=== PATIENT | female | born 1940 | race American Indian/Alaskan Native ===

== ENCOUNTER 2016-10-14 20:40 | Emergency (ER) | payer OTHER ==
[2016-10-14] MEDS ORDERED: ONDANSETRON 4 MG/2 ML VIAL IVP ONE (21:06)
[2016-10-14] MEDS ORDERED: NS 1,000 ML IV ONE (21:06)
[2016-10-14 21:30] VITALS: BP 145/91; PULSE 76; RESP 16; TEMP 98.2; O2SAT 94
[2016-10-14 21:47] LABS: % IMMATURE GRANULYOCYTES 0.3 % (0.0-1.1); ABSOLUTE IMMATURE GRANULOCYTES 0.02 10^3/uL (0.00-0.10); ADD DIFF? NO; ADD MORPH? NO; ADD SCAN? NO; ATYPICAL LYMPHOCYTE FLAG 10 (0-99); FRAGMENT RBC FLAG 0 (0-99); HEMATOCRIT 40.8 % (38.0-47.0); HEMOGLOBIN 13.8 g/dL (12.6-16.3); LEFT SHIFT FLG 0 (0-99); LIPEMIA HEMOLYSIS FLAG 90 (0-99); MEAN CELL HEMOGLOBIN 30.9 pg (27.9-34.1); MEAN CELL HEMOGLOBIN CONCENTR. 33.8 g/dL (32.4-36.7); MEAN CELL VOLUME 91.5 fL (81.5-99.8); MEAN PLATELET VOLUME 9.5 fL (8.7-11.7); PLATELET CLUMPS FLAG 0 (0-99); PLATELET COUNT 173 10^3/uL (150-400); RED BLOOD CELL COUNT 4.46 10^6/uL (4.18-5.33); RED CELL DISTRIBUTION WIDTH 12.9 % (11.5-15.2)
[2016-10-14 22:01] LABS: ALANINE AMINOTRANSFERASE 26 IU/L (9-52); ALBUMIN 3.8 g/dL (3.5-5.0); ALKALINE PHOSPHATASE 93 IU/L (38-126); ANION GAP 10 mEq/L (8-16); ASPARTATE AMINOTRANSFERASE 26 IU/L (14-46); BILIRUBIN,TOTAL 1.4 mg/dL (0.1-1.4); CALCIUM 9.2 mg/dL (8.5-10.4); CARBON DIOXIDE 23 mEq/l (22-31); CHLORIDE 103 mEq/L (97-110); CREATININE 0.7 mg/dL (0.6-1.0); GLOMERULAR FILTRATION RATE > 60; GLUCOSE 93 mg/dL (70-100); POTASSIUM 3.6 mEq/L (3.5-5.2); SODIUM 136 mEq/L (134-144); TOTAL PROTEIN 6.9 g/dL (6.3-8.2)
[2016-10-14] MEDS ORDERED: MAALOX/HYOSC GI COCKTAIL 45 ML BOTTLE PO ONE (22:15)
[2016-10-14] MEDS ORDERED: ONDANSETRON 4MG PREPACK#2 BTL TAKEHOME ONE (22:30)
--- NOTE | 2016-10-14 22:35 | UCPHY ---
H & P Patient Type: Established Chief Complaint Nursing Narrative: abdominal pain and vomiting for 1 day Time Seen by Provider: 10/14/16 21:14 HPI/ROS: This patient has epigastric discomfort and vomiting. She reports that she had simultaneous onset of epigastric burning pain similar to previous episodes associated with vomiting and had 4 episodes of vomiting today. She has ongoing nausea currently. She reports the discomfort is moderate in intensity and radiates slightly to her back. She reports that typically once or twice a year she has episodes like this for quite some time and usually improves after IV fluids and hydration. She has had workup with Gastroenterology was unrevealing and takes Prevacid and reports compliance with her Prevacid. ROS: No fevers or chills. She reports no other constitutional complaints. She has no HEENT complaints. Pulmonary: No cough or shortness of breath cardiovascular: No lightheadedness or heart palpitations. No chest pain. GI.: She reports no hematemesis or coffee-ground emesis. She had 2 loose stools today. Integumentary: No skin rash. 10 point ROS is otherwise negative. Source: Patient Exam Limitations: No limitations - Personal History Current Tetanus Diphtheria and Acellular Pertussis (TDAP): Yes Tetanus Vaccine Date: < 10 years - Medical/Surgical History Hx Asthma: No Hx Chronic Respiratory Disease: No Hx Diabetes: No Hx Cardiac Disease: No Hx Renal Disease: No Hx Cirrhosis: No Hx Alcoholism: No Hx HIV/AIDS: No Hx Splenectomy or Spleen Trauma: No Other PMH: hypothyroid, tubes tied, thyroid tumor, GERD - Family History Significant Family History: No pertinent family hx - Social History Smoking Status: Never smoked Alcohol Use: None Drug Use: None - Physical Exam Exam: General Appearance: Pleasant female Alert, no distress. Eyes: Pupils equal and round no pallor or injection. ENT, Mouth: Mucous membranes moist. Respiratory: There are no retractions, lungs are clear to auscultation. Cardiovascular: Regular rate and rhythm. No murmur gallop or rub Gastrointestinal: Mildly hyperactive bowel sounds. Soft, minimal epigastric tenderness that reproduces her symptoms with no guarding or rebound. No hepatomegaly. No splenomegaly. Back: No CVA tenderness Neurological: Alert with no focal deficits Skin: Warm and dry, no rashes. Extremities are symmetrical, full range of motion. Psychiatric: Mood and affect are normal DIFFERENTIAL DIAGNOSIS: After history and physical exam differential diagnosis was considered for gastritis, pancreatitis, hepatitis, viral illness, dehydration Constitutional: Initial Vital Signs Temperature (C) 36.8 C 10/14/16 21:27 Heart Rate 76 10/14/16 21: Respiratory Rate 16 10/14/16 21:27 Blood Pressure 145/91 H 10/14/16 21:27 O2 Sat (%) 94 10/14/16 21:27 O2 Delivery Mode Room Air Allergies/Adverse Reactions: No Known Allergies Allergy (Verified 10/14/16 21:21) Home Medications: Medication Instructions Recorded Calcium Carb W/Vit D [Calcium Carb 1,000 mg PO BIDMEAL 07/23/15 W/Vit D 500/200 (OTC)] Lansoprazole [Prevacid] 15 mg PO DAILY 07/23/15 Cyanocobalamin [Vitamin B12 1,000 mcg IM SU19 #4 vial 07/24/15 1000MCG/ML (*)] Levothyroxine [Synthroid 50 mcg 25 mcg PO DAILY06 #0 tab 07/24/15 (*)] Ondansetron Odt [Zofran Odt] 4 - 8 mg PO Q4PRN PRN #4 tab 10/14/16 Medical Decision Making ED Course/Re-evaluation: IV normal saline bolus x1 L Zofran IV Patient's nausea resolved. She is given a GI cocktail with resolution of her epigastric discomfort. Review of her labs reveals normal electrolytes, LFTs and lipase. CBC is also normal. I counseled regarding this. I suspect this patient has a flare of gastritis contributing to her symptoms or viral illness. She does not have a surgical abdomen and does not have any concerning findings on workup. - Data Points Laboratory Results: Laboratory Results 10/14/16 21:40 10/14/16 21:40 10/14/16 21:40 WBC 6.39 10^3/uL (3.80-9.50) RBC 4.46 10^6/uL (4.18-5.33) Hgb 13.8 g/dL (12.6-16.3) Hct 40.8 % (38.0-47.0) MCV 91.5 fL (81.5-99.8) MCH 30.9 pg (27.9-34.1) MCHC 33.8 g/dL (32.4-36.7) RDW 12.9 % (11.5-15.2) Plt Count 173 10^3/uL (150-400) MPV 9.5 fL (8.7-11.7) Neut % (Auto) 84.9 H % (39.3-74.2) Lymph % (Auto) 10.3 L % (15.0-45.0) [place] % (Auto) 3.8 L % (4.5-13.0) Eos % (Auto) 0.5 L % (0.6-7.6) Baso % (Auto) 0.2 L % (0.3-1.7) Nucleat RBC Rel Count 0.0 % (0.0-0.2) Absolute Neuts (auto) 5.43 10^3/uL (1.70-6.50) Absolute Lymphs (auto) 0.66 L 10^3/uL (1.00-3.00) Absolute Monos (auto) 0.24 L 10^3/uL (0.30-0.80) Absolute Eos (auto) 0.03 10^3/uL (0.03-0.40) Absolute Basos (auto) 0.01 L 10^3/uL (0.02-0.10) Absolute Nucleated RBC 0.00 10^3/uL (0-0.01) Immature Gran % 0.3 % (0.0-1.1) Immature Gran # 0.02 10^3/uL (0.00-0.10) Sodium 136 mEq/L (134-144) Potassium 3.6 mEq/L (3.5-5.2) Chloride 103 mEq/L (97-110) Carbon Dioxide 23 mEq/l (22-31) Anion Gap 10 mEq/L (8-16) BUN 12 mg/dL (7-23) Creatinine 0.7 mg/dL (0.6-1.0) Estimated GFR > 60 Glucose 93 mg/dL (70-100) Calcium 9.2 mg/dL (8.5-10.4) Total Bilirubin 1.4 mg/dL (0.1-1.4) AST 26 IU/L (14-46) ALT 26 IU/L (9-52) Alkaline Phosphatase 93 IU/L (38-126) Total Protein 6.9 g/dL (6.3-8.2) Albumin 3.8 g/dL (3.5-5.0) Lipase 53.0 IU/L (23-300) Medications Given: Discontinued Medications Sodium Chloride (Ns) 1,000 mls @ 0 mls/hr IV ONCE ONE PRN Reason: Wide Open Stop: 10/14/16 21:07 Last Admin: 10/14/16 21:30 Dose: 1,000 mls Miscellaneous Medication (Gi Cocktail(No Lido)) 45 ml PO EDNOW ONE Stop: 10/14/16 22:16 Last Admin: 10/14/16 22:23 Dose: 45 ml Ondansetron HCl (Zofran) 4 mg IVP EDNOW ONE Stop: 10/14/16 21:07 Last Admin: 10/14/16 21:45 Dose: 4 mg Departure - Departure Disposition: Home, Routine, Self-Care Clinical Impression: Gastritis Qualifiers: Gastritis type: unspecified gastritis Chronicity: acute Gastritis bleeding: without bleeding Qualifier Code: (K29.00) Acute gastritis without bleeding Vomiting Qualifiers: Vomiting type: unspecified Vomiting Intractability: non-intractable Nausea presence: with nausea Qualifier Code: (R11.2) Nausea with vomiting, unspecified Condition: Good Instructions: Gastritis (ED), Acute Nausea and Vomiting (ED) Additional Instructions: Diagnosis: 1. Vomiting 2. Gastritis Plan: Light diet until he feel improved Zofran if needed for nausea or vomiting Continue Prevacid Add Maalox as needed for discomfort Return for any significant worsening despite treatment plan - PQRS PQRS Measurement: 134: Depression screening and followup, PRIME MD-PHQ2 (12 years and older) Over the last 2 weeks, how often have you been bothered by any of the following problems? 1. Feeling down, depressed, or hopeless? 2. Little interest or pleasure in doing things? Patient answered no to both 1 and 2 130: Documentation of medications. Reviewed all patient medications, doses, route and frequency. 226: Do you smoke? [No.] 47: 65 and older: Advanced care planning. Patient designates surrogate decision maker as spouse. 51: 18 years old and older with diagnosis of COPD, spirometry performance. NA 52: 18 years old and older with COPD and symptoms of COPD or FEV1<60% predicted prescribed a B Agonist. NA
== END 2016-10-14 22:55 | disposition home or self-care (01) ==
LOC: CED 20:40
DX: K29.00 Acute gastritis without bleeding (principal); R11.2 Nausea with vomiting, unspecified; E03.9 Hypothyroidism, unspecified; K21.9 Gastro-esophageal reflux disease without esophagitis
CPT/HCPCS: 96361; 96374; G0463; J2405; 80053-PO; 83690-PO; 85025-PO; 99205-PO

== ENCOUNTER 2016-10-17 16:36 | Emergency (ER) | payer OTHER ==
[2016-10-17] MEDS ORDERED: ONDANSETRON 4 MG/2 ML VIAL IVP ONE (17:29)
[2016-10-17] MEDS ORDERED: NS 1,000 ML IV ONE ×2 (17:29→19:50)
[2016-10-17 18:16] LABS: ANION GAP 11 mEq/L (8-16); CALCIUM 8.8 mg/dL (8.5-10.4); CARBON DIOXIDE 25 mEq/l (22-31); CHLORIDE 104 mEq/L (97-110); CREATININE 0.8 mg/dL (0.6-1.0); GLOMERULAR FILTRATION RATE > 60; GLUCOSE 90 mg/dL (70-100); POTASSIUM 3.8 mEq/L (3.5-5.2); SODIUM 140 mEq/L (134-144)
[2016-10-17 19:05] LABS: LEUKOCYTE ESTERASE,URINE NEGATIVE (NEGATIVE); NITRITE,URINE NEGATIVE (NEGATIVE)
[2016-10-17 19:06] LABS: COLOR PALE YELLOW
[2016-10-17 19:11] LABS: WBC,URINE NONE SEEN /hpf (0-3)
[2016-10-17 19:12] LABS: BACTERIA TRACE /hpf (NONE SEEN)
--- NOTE | 2016-10-17 20:04 | UCPHY ---
H & P Patient Type: Established Chief Complaint Nursing Narrative: diarrhea x 3 days Time Seen by Provider: 10/17/16 17:29 HPI/ROS: This patient reports diarrhea for the past 3 days frequent watery stools. She reports minimal crampy intermittent discomfort as well. I saw the same patient at the clinic here for dehydration when she had associated vomiting few days ago improved with treatment then but still has persistent diarrhea. She feels that she is dehydrated due to the ongoing diarrhea. She has decreased appetite associated with the symptoms. ROS: No high fevers or chills. HEENT: No cold symptoms or other complaints. She did have a mild frontal headache that is similar to previous headaches 2/10 intensity. No coughing. Cardiovascular no heart palpitations. : No urinary symptoms. 10 point ROS is otherwise negative Source: Patient Exam Limitations: No limitations - Personal History Current Tetanus/Diphtheria Vaccine: Unsure Tetanus Vaccine Date: < 10 years - Medical/Surgical History PMH: Intermittent GI complaints for several years with negative workups. Hx Asthma: No Hx Chronic Respiratory Disease: No Hx Diabetes: No Hx Cardiac Disease: No Hx Renal Disease: No Hx Cirrhosis: No Hx Alcoholism: No Hx HIV/AIDS: No Hx Splenectomy or Spleen Trauma: No Other PMH: hypothyroid, tubes tied, thyroid tumor, GERD - Family History Significant Family History: No pertinent family hx - Social History Smoking Status: Never smoked Alcohol Use: None Drug Use: None - Physical Exam Exam: General Appearance: Pleasant female Alert, no distress. Eyes: Pupils equal and round no pallor or injection. ENT, Mouth: Mucous membranes dry. Respiratory: There are no retractions, lungs are clear to auscultation. Cardiovascular: Regular rate and rhythm. Gastrointestinal: Mildly hyperactive bowel sounds. Soft, nontender Back: No CVA tenderness Neurological: Alert with no focal deficits. Skin: Warm and dry, no rashes. Musculoskeletal: Neck is supple nontender. Extremities are symmetrical, full range of motion. Psychiatric: Mood and affect are normal DIFFERENTIAL DIAGNOSIS: After history and physical exam differential diagnosis was considered for food intolerance, viral gastroenteritis, dysentery, food poisoning Constitutional: Initial Vital Signs Temperature (C) 36.6 C 10/17/16 16:41 Heart Rate 67 10/17/16 16:41 Respiratory Rate 17 10/17/16 16:41 Blood Pressure 122/80 H 10/17/16 16:41 O2 Sat (%) 93 10/17/16 16:41 O2 Delivery Mode Room Air Allergies/Adverse Reactions: No Known Allergies Allergy (Verified 10/14/16 21:21) Home Medications: Medication Instructions Recorded Calcium Carb W/Vit D [Calcium Carb 1,000 mg PO BIDMEAL 07/23/15 W/Vit D 500/200 (OTC)] Lansoprazole [Prevacid] 15 mg PO DAILY 07/23/15 Cyanocobalamin [Vitamin B12 1,000 mcg IM SU19 #4 vial 07/24/15 1000MCG/ML (*)] Levothyroxine [Synthroid 50 mcg 25 mcg PO DAILY06 #0 tab 07/24/15 (*)] Ondansetron Odt [Zofran Odt] 4 - 8 mg PO Q4PRN PRN #4 tab 10/14/16 Medical Decision Making ED Course/Re-evaluation: IV normal saline bolus Patient's labs are normal-metabolic profile and urinalysis. She is unable to provide a stool sample. I counseled patient regarding diarrhea. She appears clinically well - Data Points Laboratory Results: Laboratory Results 10/17/16 17:55 Medications Given: Discontinued Medications Sodium Chloride (Ns) 1,000 mls @ 0 mls/hr IV ONCE ONE PRN Reason: Wide Open Stop: 10/17/16 17:30 Last Admin: 10/17/16 18:03 Dose: 1,000 mls Sodium Chloride (Ns) 1,000 mls @ 0 mls/hr IV ONCE ONE PRN Reason: Wide Open Stop: 10/17/16 19:51 Last Admin: 10/17/16 19:50 Dose: 1,000 mls Ondansetron HCl (Zofran) 4 mg IVP EDNOW ONE Stop: 10/17/16 17:30 Last Admin: 10/17/16 18:00 Dose: 4 mg Departure - Departure Disposition: Home, Routine, Self-Care Clinical Impression: Dehydration Condition: Good Instructions: Acute Diarrhea (ED) Additional Instructions: Diagnoses: 1. Diarrhea 2. Dehydration Plan: Drink plenty fluids Light diet until he feel improved Imodium if needed for diarrhea. Follow up with primary care physician for any ongoing symptoms The emergency department for any significant worsening despite the treatment plan. Referrals: Forrest Chen DO [Primary Care Provider] - As per Instructions - PQRS PQRS Measurement: 134: Depression screening and followup, PRIME MD-PHQ2 (12 years and older) Over the last 2 weeks, how often have you been bothered by any of the following problems? 1. Feeling down, depressed, or hopeless? 2. Little interest or pleasure in doing things? Patient answered no to both 1 and 2 130: Documentation of medications. Reviewed all patient medications, doses, route and frequency. 226: Do you smoke? [No.] 47: 65 and older: Advanced care planning. Patient designates surrogate decision maker as spouse 51: 18 years old and older with diagnosis of COPD, spirometry performance. NA 52: 18 years old and older with COPD and symptoms of COPD or FEV1<60% predicted prescribed a B Agonist. NA
[2016-10-17 21:21] VITALS: BP 130/86; PULSE 64; RESP 16; TEMP 97.7; O2SAT 91
== END 2016-10-17 21:22 | disposition home or self-care (01) ==
LOC: CED 16:36
DX: R19.7 Diarrhea, unspecified (principal); E86.0 Dehydration
CPT/HCPCS: 96361; 96374; G0463; J2405; 80048-PO; 81003-PO; 81015-PO; 99214-PO

== ENCOUNTER 2016-11-21 14:47 | Emergency (ER) | payer OTHER ==
[2016-11-21 15:03] VITALS: RESP 16
--- NOTE | 2016-11-21 15:33 | UCPHY ---
H & P Patient Type: Established HPI/ROS: CHIEF COMPLAINT: Myalgia, vomiting. HISTORY OF PRESENT ILLNESS: The patient is a 76-year-old female who presents with myalgia and vomiting since yesterday. This morning she developed associated chills, cough, rhinorrhea, and increased urinary output. She has had difficulty keeping food or fluids down. Her last vomiting episode was 1800 last night, but essentially has had no significant fluid intake since , 36 hours ago as she has no interest in fluids this morning. She had a little bit of diarrhea but no abdominal pain. No chest pain, shortness of breath, rash, fever, sore throat, hematemesis, bloody stool, abdominal pain. REVIEW OF SYSTEMS: Constitutional: As above. Eyes: No discharge ENT: No sore throat. Cardiovascular: No chest pain, no palpitations. Respiratory: As above. Gastrointestinal: As above. Genitourinary: As above. Musculoskeletal: No back pain. Skin: No rashes. Neurological: No headache. 10 point ROS otherwise negative Past Medical/Surgical History: Hypothyroidism, tubal ligation, GERD, thyroid tumor. Social History: Nonsmoker. Smoking Status: Never smoked Physical Exam: General Appearance: Alert, no distress. Afebrile. Normal phonation. No respiratory distress. Eyes: Pupils equal and round no pallor or injection. No icterus ENT, Mouth: Mucous membranes mild dryness. Pharynx not erythematous and without exudate. TM Clear. Neck: No adenopathy. Supple. No JVD. Trachea in midline. Respiratory: There are no retractions, lungs are clear to auscultation. Cardiovascular: Regular rate and rhythm, without murmur Abdomen: Soft and nontender, no masses, bowel sounds normal. Neurological: Ox3. No motor weakness. Sensation intact. Gait nl. Skin: Warm and dry, no rashes. Musculoskeletal: No joint swelling. Extremities: No edema. Psychiatric: Normal affect Constitutional: Initial Vital Signs Temperature (C) 36.7 C 11/21/16 14:58 Heart Rate 70 11/21/16 14:58 Respiratory Rate 16 11/21/16 14:58 Blood Pressure 129/79 H 11/21/16 14:58 O2 Sat (%) 95 11/21/16 14:58 O2 Delivery Mode Nasal Cannula O2 (L/minute) 2 Allergies/Adverse Reactions: No Known Allergies Allergy (Verified 11/21/16 15:03) Home Medications: Medication Instructions Recorded Calcium 11/21/16 Levothyroxine Sodium 11/21/16 Prevacid 11/21/16 Medical Decision Making - Diagnostics Imaging: Study: PA and Lateral Chest X-ray Indication: Hypoxia. Results: I viewed the images myself on the PACS system. The radiologist interpretation per Dr. Flor is: 1. Mild perihilar bronchitis with possible medial lingular subsegmental atelectasis versus an early infiltrate. 2. Mild cardiomegaly, without congestive heart failure. ED Course/Re-evaluation: An IV was established and labs ordered. NS 1L IV administered for hydration over the course of approximately 3 hours due to her age. Also,Zofran 4mg IV for nausea and Protonix 40mg IV. 1724: Reassessed patient. We discussed the results of her blood work. Her oxygen saturation has been dropping to the low 80s so she was placed on oxygen. She tells me she is not a former smoker and has never lived with a smoker. We will obtain a chest x-ray. Over time she felt much better. Was some discussion between the nurse and I regarding her pulse oximetry which does seem to have a good plus oximeter wave form, was decided a more normal given her negative BMP and negative chest x-ray for CHF in the setting of the tape pulse oximeter instead of the clamp pulse oximeter. BS remiained claer and no JVD. Differential Diagnosis: Differential diagnosis includes, but is not limited to: Gastroenteritis, dehydration, diverticulitis, cholecystitis, appendicitis, gastritis, food poisoning, bacterial dysentery - Data Points Laboratory Results: Laboratory Results 11/21/16 16:35 11/21/16 16:35 11/21/16 11/21/16 11/21/16 18:40 16:35 16:35 WBC RBC Hgb Hct MCV MCH MCHC RDW Plt Count MPV Neut % (Auto) Lymph % (Auto) [place] % (Auto) Eos % (Auto) Baso % (Auto) Nucleat RBC Rel Count Absolute Neuts (auto) Absolute Lymphs (auto) Absolute Monos (auto) Absolute Eos (auto) Absolute Basos (auto) Absolute Nucleated RBC Immature Gran % Immature Gran # VBG Lactic Acid Sodium 142 mEq/L mEq/L (134-144) Potassium 3.5 mEq/L mEq/L (3.5-5.2) Chloride 104 mEq/L mEq/L (97-110) Carbon Dioxide 23 mEq/l mEq/l (22-31) Anion Gap 15 mEq/L mEq/L (8-16) BUN 11 mg/dL mg/dL (7-23) Creatinine 0.7 mg/dL mg/dL (0.6-1.0) Estimated GFR > 60 Glucose 83 mg/dL mg/dL (70-100) Calcium 9.1 mg/dL mg/dL (8.5-10.4) Total Bilirubin 1.8 mg/dL H mg/dL (0.1-1.4) Conjugated Bilirubin 0.2 mg/dL mg/dL (0.0-0.5) Unconjugated Bilirubin 1.6 mg/dL H mg/dL (0.0-1.1) AST 19 IU/L IU/L (14-46) ALT 27 IU/L IU/L (9-52) Alkaline Phosphatase 100 IU/L IU/L (38-126) Troponin I < 0.012 ng/mL ng/mL (0-0.034) NT-Pro-B Natriuret Pep 73 pg/mL pg/mL (0-450) Total Protein 6.9 g/dL g/dL (6.3-8.2) Albumin 3.8 g/dL g/dL (3.5-5.0) Lipase 44.0 IU/L IU/L (23-300) Urine Color YELLOW Urine Appearance CLEAR Urine pH 6.5 (5.0-7.5) Ur Specific [place] <= 1.005 (1.002-1.030) Urine Protein NEGATIVE (NEGATIVE) Urine Ketones NEGATIVE (NEGATIVE) Urine Blood 1+ H (NEGATIVE) Urine Nitrate NEGATIVE (NEGATIVE) Urine Bilirubin NEGATIVE (NEGATIVE) Urine Urobilinogen 0.2 EU EU (0.2-1.0) Ur Leukocyte Esterase NEGATIVE (NEGATIVE) Urine RBC 1-3 /hpf /hpf (0-3) Urine WBC 1-3 /hpf /hpf (0-3) Ur Epithelial Cells 1+ /lpf /lpf (NONE-1+) Urine Bacteria 2+ /hpf H /hpf (NONE SEEN) Ur Culture Indicated? INDICATED H (NI) Urine Glucose NEGATIVE (NEGATIVE) 11/21/16 11/21/16 16:35 16:35 WBC 3.52 10^3/uL L 10^3/uL (3.80-9.50) RBC 4.37 10^6/uL 10^6/uL (4.18-5.33) Hgb 13.6 g/dL g/dL (12.6-16.3) Hct 39.1 % % (38.0-47.0) MCV 89.5 fL fL (81.5-99.8) MCH 31.1 pg pg (27.9-34.1) MCHC 34.8 g/dL g/dL (32.4-36.7) RDW 13.1 % % (11.5-15.2) Plt Count 179 10^3/uL 10^3/uL (150-400) MPV 9.5 fL fL (8.7-11.7) Neut % (Auto) 52.6 % % (39.3-74.2) Lymph % (Auto) 38.9 % % (15.0-45.0) [place] % (Auto) 6.5 % % (4.5-13.0) Eos % (Auto) 1.4 % % (0.6-7.6) Baso % (Auto) 0.6 % % (0.3-1.7) Nucleat RBC Rel Count 0.0 % % (0.0-0.2) Absolute Neuts (auto) 1.85 10^3/uL 10^3/uL (1.70-6.50) Absolute Lymphs (auto) 1.37 10^3/uL 10^3/uL (1.00-3.00) Absolute Monos (auto) 0.23 10^3/uL L 10^3/uL (0.30-0.80) Absolute Eos (auto) 0.05 10^3/uL 10^3/uL (0.03-0.40) Absolute Basos (auto) 0.02 10^3/uL 10^3/uL (0.02-0.10) Absolute Nucleated RBC 0.00 10^3/uL 10^3/uL (0-0.01) Immature Gran % 0.0 % % (0.0-1.1) Immature Gran # 0.00 10^3/uL 10^3/uL (0.00-0.10) VBG Lactic Acid 0.9 mmol/L mmol/L (0.7-2.1) Sodium Potassium Chloride Carbon Dioxide Anion Gap BUN Creatinine Estimated GFR Glucose Calcium Total Bilirubin Conjugated Bilirubin Unconjugated Bilirubin AST ALT Alkaline Phosphatase Troponin I NT-Pro-B Natriuret Pep Total Protein Albumin Lipase Urine Color Urine Appearance Urine pH Ur Specific [place] Urine Protein Urine Ketones Urine Blood Urine Nitrate Urine Bilirubin Urine Urobilinogen Ur Leukocyte Esterase Urine RBC Urine WBC Ur Epithelial Cells Urine Bacteria Ur Culture Indicated? Urine Glucose Medications Given: Discontinued Medications Sodium Chloride (Ns) 1,000 mls @ 0 mls/hr IV ONCE ONE PRN Reason: Wide Open Stop: 11/21/16 15:53 Last Admin: 11/21/16 16:35 Dose: 1,000 mls Pantoprazole Sodium 40 mg/ (Sodium Chloride) 100 mls @ 200 mls/hr IV ONCE ONE Stop: 11/21/16 16:22 Last Admin: 11/21/16 16:35 Dose: 100 mls Ondansetron HCl (Zofran) 4 mg IVP EDNOW ONE Stop: 11/21/16 15:53 Last Admin: 11/21/16 16:35 Dose: 4 mg Departure - Departure Disposition: Home, Routine, Self-Care Clinical Impression: Viral syndrome Condition: Good Instructions: Ondansetron (By mouth), Viral Syndrome (ED) Additional Instructions: Drink plenty of fluids and be sure to get rest. For tonight only clear liquids. Beginning tomorrow he may just have something more substantial such as putting or aches. Through the course of tomorrow a advance her diet for the next 24 hours. Take extra fluids when getting home Continue to take her usual medications. Zofran as needed for nausea in the next 12 hours. No more than that If still to stick tomorrow morning with either nausea, vomiting, or diarrhea than you should return to the clinic. Follow up with your primary care provider in the next 2-3 days if symptoms are not improving. Return for any serious worsening of condition. Referrals: Forrest Chen, [Primary Care Provider] - As per Instructions - PQRS PQRS Measurement: 134: Depression screening and followup, PRIME MD-PHQ2 (12 years and older) Over the last 2 weeks, how often have you been bothered by any of the following problems? 1. Feeling down, depressed, or hopeless? 2. Little interest or pleasure in doing things? Patient answered no to both 1 and 2 130: Documentation of medications. Reviewed all patient medications, doses, route and frequency. 226: Do you smoke? No. 47: 65 and older: Advanced care planning. Patient designates surrogate decision maker as adult children, their son. . 51: 18 years old and older with diagnosis of COPD, spirometry performance. Patient has no history of COPD 52: 18 years old and older with COPD and symptoms of COPD or FEV1<60% predicted prescribed a B Agonist. Patient has no history of COPD Report Scribed for: Irvin Kirk Report Scribed by: Barry Kumar Date of Report: 11/21/16 Time of Report: 15:35 Physician Review and Approval Statement: 11/21/16 15:43 Portions of this note were transcribed by a medical records auditor. I personally performed a history, physical exam, medical decision making, and confirmed accuracy of information the transcribed note.
[2016-11-21] MEDS ORDERED: ONDANSETRON 4 MG/2 ML VIAL IVP ONE (15:52)
[2016-11-21] MEDS ORDERED: NS 1,000 ML IV ONE (15:52)
[2016-11-21] MEDS ORDERED: PANTOPRAZOLE SODIUM 40 MG in NS 100 ML IV ONE (15:53)
--- NOTE | 2016-11-21 16:09 | CPEKG ---
Heart Rate: 62 RR Interval: 968 P-R Interval: 172 QRSD Interval: 90 QT Interval: 428 QTC Interval: 435 P [place]: 59 QRS [place]: 38 T Wave [place]: 17 EKG Severity - ABNORMAL ECG - EKG Impression: SINUS RHYTHM EKG Impression: There are anterior NSSTT changes in V2, V3. 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
[2016-11-21 16:39] LABS: ADD DIFF? NO; ADD MORPH? NO; ADD SCAN? NO; ATYPICAL LYMPHOCYTE FLAG 20 (0-99); FRAGMENT RBC FLAG 0 (0-99); HEMATOCRIT 39.1 % (38.0-47.0); HEMOGLOBIN 13.6 g/dL (12.6-16.3); LEFT SHIFT FLG 0 (0-99); LIPEMIA HEMOLYSIS FLAG 90 (0-99); MEAN CELL HEMOGLOBIN 31.1 pg (27.9-34.1); MEAN CELL HEMOGLOBIN CONCENTR. 34.8 g/dL (32.4-36.7); MEAN CELL VOLUME 89.5 fL (81.5-99.8); MEAN PLATELET VOLUME 9.5 fL (8.7-11.7); PLATELET CLUMPS FLAG 20 (0-99); PLATELET COUNT 179 10^3/uL (150-400); RED BLOOD CELL COUNT 4.37 10^6/uL (4.18-5.33); RED CELL DISTRIBUTION WIDTH 13.1 % (11.5-15.2)
[2016-11-21 16:53] LABS: ALANINE AMINOTRANSFERASE 27 IU/L (9-52); ALBUMIN 3.8 g/dL (3.5-5.0); ALKALINE PHOSPHATASE 100 IU/L (38-126); ANION GAP 15 mEq/L (8-16); ASPARTATE AMINOTRANSFERASE 19 IU/L (14-46); BILIRUBIN,TOTAL 1.8 mg/dL (0.1-1.4); BILIRUBIN-CONJUGATED 0.2 mg/dL (0.0-0.5); BILIRUBIN-UNCONJUGATED 1.6 mg/dL (0.0-1.1); CALCIUM 9.1 mg/dL (8.5-10.4); CARBON DIOXIDE 23 mEq/l (22-31); CHLORIDE 104 mEq/L (97-110); CREATININE 0.7 mg/dL (0.6-1.0); GLOMERULAR FILTRATION RATE > 60; GLUCOSE 83 mg/dL (70-100); POTASSIUM 3.5 mEq/L (3.5-5.2); SODIUM 142 mEq/L (134-144); TOTAL PROTEIN 6.9 g/dL (6.3-8.2)
[2016-11-21 17:04] LABS: TROPONIN I < 0.012 ng/mL (0-0.034)
[2016-11-21 17:14] VITALS: TEMP 98.7
[2016-11-21 18:44] LABS: COLOR YELLOW; LEUKOCYTE ESTERASE,URINE NEGATIVE (NEGATIVE); NITRITE,URINE NEGATIVE (NEGATIVE); PH,URINE 6.5 (5.0-7.5)
[2016-11-21 19:38] LABS: BACTERIA 2+ /hpf (NONE SEEN)
[2016-11-21] MEDS ORDERED: ONDANSETRON 4MG PREPACK#2 BTL TAKEHOME ONE (20:08)
[2016-11-21 20:32] VITALS: BP 103/85; PULSE 58; O2SAT 90
== END 2016-11-21 20:33 | disposition home or self-care (01) ==
LOC: CED 14:47
DX: B34.9 Viral infection, unspecified (principal)
CPT/HCPCS: 71020; 93005; 96361; 96365; 96375; G0463; J2405; 80048-PO; 80076-PO; 81003-PO; 81015-PO; 83605-PO; 83690-PO; 83880-PO; 84484-PO; 85025-PO; 93010-PO; 99215-PO

== ENCOUNTER 2017-01-23 07:42 | Emergency (ER) | payer OTHER ==
[2017-01-23 08:01] VITALS: TEMP 97.9
[2017-01-23] MEDS ORDERED: IBUPROFEN 600 MG TAB PO ONE (08:14)
--- NOTE | 2017-01-23 08:16 | EDPHY ---
H & P Stated Complaint: fall over to R side 2 weeks ago; pain R ribs to back Time Seen by Provider: 01/23/17 08:01 HPI/ROS: CHIEF COMPLAINT: Right-sided chest pain History by patient HISTORY OF PRESENT ILLNESS: 76-year-old woman presents complaining of pain on the right side of her chest which begins under her breast and radiates around to her back which started 2 weeks ago after she fell asleep on the couch and rolled off landing on her right side. She has been having ongoing pain since then particularly when she moves around, changes position or sneezes. She denies any shortness of breath, cough but does have some mild pleuritic pain. She denies any other pain or injury. She took Tylenol once at home with minimal relief. She came in today stating she is worried that it has not gotten better and would like an x-ray. REVIEW OF SYSTEMS: As in HPI, and all other systems reviewed and are negative - Personal History Current Tetanus/Diphtheria Vaccine: Yes Tetanus Vaccine Date: within 10 years - Medical/Surgical History Hx Asthma: No Hx Chronic Respiratory Disease: No Hx Diabetes: No Hx Cardiac Disease: No Hx Renal Disease: No Hx Cirrhosis: No Hx Alcoholism: No Hx HIV/AIDS: No Hx Splenectomy or Spleen Trauma: No Other PMH: hypothyroid, tubes tied, thyroid tumor, GERD - Family History Significant Family History: No pertinent family hx - Social History Smoking Status: Never smoked - Physical Exam Exam: General Appearance: Alert, slightly uncomfortable appearing, obese. Eyes: Pupils equal and round no pallor or injection. ENT, Mouth: Mucous membranes moist. Respiratory: Normal, effort, There are no retractions, lungs are clear to auscultation. Chest: Positive tenderness to right lower ribs and right lower sternal border, no crepitus or step-off Cardiovascular: Regular rate and rhythm. Gastrointestinal: Abdomen is soft and nontender, no masses, bowel sounds normal. Neurological: Awake, alert and oriented x 3, no pronator drift, normal gait, no pronator drift Skin: Warm and dry, no rashes. Musculoskeletal: Neck is supple nontender. Extremities are symmetrical, full range of motion. Back: No bony tenderness, full range of motion but pain with rotation to the right Psychiatric: Patient has normal affect, there is no agitation. Constitutional: Initial Vital Signs Temperature (C) 36.6 C 01/23/17 07:57 Heart Rate 72 01/23/17 07:57 Respiratory Rate 16 01/23/17 07:57 Blood Pressure 140/88 H 01/23/17 07:57 O2 Sat (%) 95 01/23/17 07:57 O2 Delivery Mode Room Air Allergies/Adverse Reactions: No Known Allergies Allergy (Verified 01/23/17 08:01) Home Medications: Medication Instructions Recorded Calcium 11/21/16 Levothyroxine Sodium 11/21/16 Prevacid 11/21/16 Hydrocodone/APAP 5/325 [[place] 1 - 2 tab PO Q4H PRN #10 tab 01/23/17 5/325 (*)] Medical Decision Making - Diagnostics Imaging Results: Imaging Impressions Chest X-Ray 01/23/17 08:13 Impression: 1. Mild bands of subsegmental atelectasis or fibrotic streaks at the lung bases. No change since prior study. Imaging: I viewed and interpreted images myself ED Course/Re-evaluation: 76-year-old woman presents with right-sided chest wall pain and tenderness. X- ray shows possible right lower rib fracture the radiology report does not note this. Clinically patient has rib fracture and we will treat her as such. There is no evidence of underlying infection or pneumothorax. Patient was given ibuprofen emerged from with some improvement. She is requesting pain medicines for home. She will be discharged home with a small number of [place]. - Data Points Medications Given: Discontinued Medications Ibuprofen (Motrin) 600 mg PO EDNOW ONE Stop: 01/23/17 08:15 Last Admin: 01/23/17 08:17 Dose: 600 mg Departure - Departure Disposition: Home, Routine, Self-Care Clinical Impression: Right rib fracture Qualifiers: Encounter type: initial encounter Rib fracture type: single rib Fracture type: closed Qualified Code(s): S22.31XA - Fracture of one rib, right side, initial encounter for closed fracture Condition: Fair Instructions: Rib Fracture (ED) Additional Instructions: You were seen by Dr. Dolly Fall today. Return for any worsening or new concerns. Take ibuprofen 600 mg 4 times a day as needed for pain. Take [place] as needed for severe pain. Referrals: Meghan Nj MD [Primary Care Provider] - As per Instructions Prescriptions: Hydrocodone/APAP 5/325 [[place] 5/325 (*)] 1 - 2 tab PO Q4H PRN #10 tab PRN Reason: Pain, Moderate
[2017-01-23 09:11] VITALS: BP 147/85; PULSE 66; RESP 18; O2SAT 96
== END 2017-01-23 09:10 | disposition home or self-care (01) ==
LOC: CED 07:42
DX: S22.31XA Fracture of one rib, right side, initial encounter for closed fracture (principal); W08.XXXA Fall from other furniture, initial encounter
CPT/HCPCS: 71020-PO

== ENCOUNTER 2017-01-24 06:59 | Emergency (ER) | payer OTHER ==
[2017-01-24 07:15] VITALS: TEMP 97.9
[2017-01-24] MEDS ORDERED: NS 500 ML IV ONE (07:34)
[2017-01-24] MEDS ORDERED: NS 1,000 ML IV ONE ×2 (07:35→09:00)
[2017-01-24] MEDS ORDERED: ONDANSETRON 4 MG/2 ML VIAL IVP ONE (07:35)
--- NOTE | 2017-01-24 07:40 | EDPHY ---
H & P Stated Complaint: recheck from yesterday; feels weak Time Seen by Provider: 01/24/17 07:20 HPI/ROS: CHIEF COMPLAINT: Nausea and chest pain History by patient HISTORY OF PRESENT ILLNESS: 76-year-old woman who was seen by me yesterday for right-sided chest pain after a fall and diagnosis with clinical rib fracture was given ibuprofen in the ED after which she was feeling better but sent home with a prescription for [place]. At 7:00 p.m. last night she took 1 [place] and then within 2 hours was feeling nauseated, very tired but she could not sleep and complained of a burning feeling in her chest and a bad taste in her mouth. She says she was unable to eat and she feels dehydrated. She denies any fever chills. She denies any difficulty breathing. She feels like she wants to vomit but she has not. On arrival here she still feels nauseated and complains of this burning sensation in her chest. She says that she still has some pain on the right lower side of her chest but it is not severe right now. REVIEW OF SYSTEMS: As in HPI, and all other systems reviewed and are negative Source: Patient, Family - Personal History Current Tetanus/Diphtheria Vaccine: Yes Tetanus Vaccine Date: within 10 years - Medical/Surgical History Hx Asthma: No Hx Chronic Respiratory Disease: No Hx Diabetes: No Hx Cardiac Disease: No Hx Renal Disease: No Hx Cirrhosis: No Hx Alcoholism: No Hx HIV/AIDS: No Hx Splenectomy or Spleen Trauma: No Other PMH: hypothyroid, tubes tied, thyroid tumor, GERD - Family History Significant Family History: No pertinent family hx - Social History Smoking Status: Never smoked - Physical Exam Exam: General Appearance: Alert, uncomfortable appearing. Eyes: Pupils equal and round no pallor or injection. ENT, Mouth: Mucous membranes moist. Respiratory: Normal, effort, There are no retractions, lungs are clear to auscultation. Chest: Positive right lower rib tenderness, mild right-sided sternal tender Cardiovascular: Regular rate and rhythm. Gastrointestinal: Abdomen is soft and nontender, no masses, bowel sounds normal. Neurological: Awake, alert and oriented x 3, no pronator drift, normal gait, no pronator drift Skin: Warm and dry, no rashes. Musculoskeletal: Neck is supple nontender. Extremities are symmetrical, full range of motion. Psychiatric: Patient has normal affect, there is no agitation. Constitutional: Initial Vital Signs Temperature (C) 36.6 C 01/24/17 07:11 Heart Rate 68 01/24/17 07:11 Respiratory Rate 20 01/24/17 07:11 Blood Pressure 167/70 H 01/24/17 07:11 O2 Sat (%) 96 01/24/17 07:11 O2 Delivery Mode Room Air Allergies/Adverse Reactions: No Known Allergies Allergy (Verified 01/24/17 07:13) Home Medications: Medication Instructions Recorded Calcium 11/21/16 Levothyroxine Sodium 11/21/16 Prevacid 11/21/16 Hydrocodone/APAP 5/325 [[place] 1 - 2 tab PO Q4H PRN #10 tab 01/23/17 5325 (*)] Medical Decision Making - Diagnostics EKG Interpretation: Normal sinus rhythm at a rate of 64 with normal axis, normal intervals Q-waves in the inferior leads and nonspecific ST changes but unchanged from prior ECG of 11/21/2016 and no evidence of acute ischemia ED Course/Re-evaluation: 76-year-old woman presents with nausea, fatigue and a burning sensation in her chest after taking Vicodin last night at 7:00 p.m.. Exam here is unremarkable. ECG is unchanged from prior. Troponin is negative x2. On further discussion with the patient she has had cardiac workup with a negative stress test in 2014 and given that her symptoms are atypical and fairly well explained by reaction to the Vicodin I do not think any further cardiac testing is necessary at this point. Patient was feeling much better after IV fluids and Aba was able to eat rice in the ER without any difficulty. She was given ibuprofen for her right sided rib pain with improvement. She has an appointment pending tomorrow with her primary care physician. I will have her stop the [place] and take only ibuprofen which seems to be working well for her rib pain. I discussed this with the patient her and they understand. - Data Points Laboratory Results: Laboratory Results 01/24/17 07:17 01/24/17 07:17 01/24/17 01/24/17 01/24/17 10:10 07: 07:17 WBC 5.75 10^3/uL 10^3/uL (3.80-9.50) RBC 4.14 10^6/uL L 10^6/uL (4.18-5.33) Hgb 13.1 g/dL g/dL (12.6-16.3) Hct 36.8 % L % (38.0-47.0) MCV 88.9 fL fL (81.5-99.8) MCH 31.6 pg pg (27.9-34.1) MCHC 35.6 g/dL g/dL (32.4-36.7) RDW 12.8 % % (11.5-15.2) Plt Count 188 10^3/uL 10^3/uL (150-400) MPV 9.2 fL fL (8.7-11.7) Neut % (Auto) 62.4 % % (39.3-74.2) Lymph % (Auto) 29.2 % % (15.0-45.0) [place] % (Auto) 6.3 % % (4.5-13.0) Eos % (Auto) 1.2 % % (0.6-7.6) Baso % (Auto) 0.7 % % (0.3-1.7) Nucleat RBC Rel Count 0.0 % % (0.0-0.2) Absolute Neuts (auto) 3.59 10^3/uL 10^3/uL (1.70-6.50) Absolute Lymphs (auto) 1.68 10^3/uL 10^3/uL (1.00-3.00) Absolute Monos (auto) 0.36 10^3/uL 10^3/uL (0.30-0.80) Absolute Eos (auto) 0.07 10^3/uL 10^3/uL (0.03-0.40) Absolute Basos (auto) 0.04 10^3/uL 10^3/uL (0.02-0.10) Absolute Nucleated RBC 0.00 10^3/uL 10^3/uL (0-0.01) Immature Gran % 0.2 % % (0.0-1.1) Immature Gran # 0.01 10^3/uL 10^3/uL (0.00-0.10) Sodium 135 mEq/L mEq/L (134-144) Potassium 3.5 mEq/L mEq/L (3.5-5.2) Chloride 100 mEq/L mEq/L (97-110) Carbon Dioxide 20 mEq/l L mEq/l (22-31) Anion Gap 15 mEq/L mEq/L (8-16) BUN 12 mg/dL mg/dL (7-23) Creatinine 0.6 mg/dL mg/dL (0.6-1.0) Estimated GFR > 60 Glucose 109 mg/dL H mg/dL (70-100) Calcium 8.7 mg/dL mg/dL (8.5-10.4) Total Bilirubin 1.0 mg/dL mg/dL (0.1-1.4) Conjugated Bilirubin 0.3 mg/dL mg/dL (0.0-0.5) Unconjugated Bilirubin 0.7 mg/dL mg/dL (0.0-1.1) AST 22 IU/L IU/L (14-46) ALT 26 IU/L IU/L (9-52) Alkaline Phosphatase 93 IU/L IU/L (38-126) Troponin I 0.012 ng/mL ng/mL < 0.012 ng/mL ng/mL (0-0.034) (0-0.034) Total Protein 6.7 g/dL g/dL (6.3-8.2) Albumin 3.7 g/dL g/dL (3.5-5.0) Medications Given: Discontinued Medications Sodium Chloride (Ns) 500 mls @ 0 mls/hr IV ONCE ONE PRN Reason: As Directed Stop: 01/24/17 07:35 Last Admin: 01/24/17 08:40 Dose: Not Given Sodium Chloride (Ns) 1,000 mls @ 0 mls/hr IV ONCE ONE PRN Reason: Wide Open Stop: 01/24/17 07:36 Last Admin: 01/24/17 07:45 Dose: 1,000 mls Sodium Chloride (Ns) 1,000 mls @ 0 mls/hr IV ONCE ONE PRN Reason: Wide Open Stop: 01/24/17 09:01 Last Admin: 01/24/17 10:05 Dose: 1,000 mls Ibuprofen (Motrin) 600 mg PO EDNOW ONE Stop: 01/24/17 08:26 Last Admin: 01/24/17 08:40 Dose: 600 mg Ondansetron HCl (Zofran) 4 mg IVP EDNOW ONE Stop: 01/24/17 07:36 Last Admin: 01/24/17 07:40 Dose: 4 mg Departure - Departure Disposition: Home, Routine, Self-Care Clinical Impression: Nausea, Weakness generalized Condition: Good Additional Instructions: You were seen by Dr. Dolly Fall today. Return for any worsening or new concerns. Do not take any more of the [place] (hydrocodone/acetaminophen). Take ibuprofen 600 mg 4 times a day as needed for your rib pain. Follow up with her primary care physician as scheduled tomorrow. Referrals: Forrest Chen, [Primary Care Provider] - As per Instructions
[2017-01-24 07:46] LABS: % IMMATURE GRANULYOCYTES 0.2 % (0.0-1.1); ABSOLUTE IMMATURE GRANULOCYTES 0.01 10^3/uL (0.00-0.10); ADD DIFF? NO; ADD MORPH? NO; ADD SCAN? NO; ATYPICAL LYMPHOCYTE FLAG 10 (0-99); FRAGMENT RBC FLAG 0 (0-99); HEMATOCRIT 36.8 % (38.0-47.0); HEMOGLOBIN 13.1 g/dL (12.6-16.3); LEFT SHIFT FLG 0 (0-99); LIPEMIA HEMOLYSIS FLAG 90 (0-99); MEAN CELL HEMOGLOBIN 31.6 pg (27.9-34.1); MEAN CELL HEMOGLOBIN CONCENTR. 35.6 g/dL (32.4-36.7); MEAN CELL VOLUME 88.9 fL (81.5-99.8); MEAN PLATELET VOLUME 9.2 fL (8.7-11.7); PLATELET CLUMPS FLAG 0 (0-99); PLATELET COUNT 188 10^3/uL (150-400); RED BLOOD CELL COUNT 4.14 10^6/uL (4.18-5.33); RED CELL DISTRIBUTION WIDTH 12.8 % (11.5-15.2)
--- NOTE | 2017-01-24 07:48 | CPEKG ---
Heart Rate: 64 RR Interval: 938 P-R Interval: 184 QRSD Interval: 100 QT Interval: 432 QTC Interval: 446 P [place]: 62 QRS [place]: 39 T Wave [place]: 11 EKG Severity - ABNORMAL ECG - EKG Impression: SINUS RHYTHM EKG Impression: PROBABLE INFERIOR INFARCT, AGE INDETERMINATE EKG Impression: CONSIDER POSTERIOR WALL INVOLVEMENT Electronically Signed By: Dolly Fall 24-Jan-2017 07:51:00
[2017-01-24 08:09] LABS: ALANINE AMINOTRANSFERASE 26 IU/L (9-52); ALBUMIN 3.7 g/dL (3.5-5.0); ALKALINE PHOSPHATASE 93 IU/L (38-126); ANION GAP 15 mEq/L (8-16); ASPARTATE AMINOTRANSFERASE 22 IU/L (14-46); BILIRUBIN-CONJUGATED 0.3 mg/dL (0.0-0.5); BILIRUBIN-UNCONJUGATED 0.7 mg/dL (0.0-1.1); CALCIUM 8.7 mg/dL (8.5-10.4); CARBON DIOXIDE 20 mEq/l (22-31); CHLORIDE 100 mEq/L (97-110); CREATININE 0.6 mg/dL (0.6-1.0); GLOMERULAR FILTRATION RATE > 60; GLUCOSE 109 mg/dL (70-100); POTASSIUM 3.5 mEq/L (3.5-5.2); SODIUM 135 mEq/L (134-144); TOTAL PROTEIN 6.7 g/dL (6.3-8.2)
[2017-01-24 08:17] LABS: TROPONIN I < 0.012 ng/mL (0-0.034)
[2017-01-24] MEDS ORDERED: IBUPROFEN 200 MG TAB PO ONE (08:25)
[2017-01-24] MEDS ORDERED: IBUPROFEN 600 MG TAB PO ONE (08:33)
[2017-01-24 10:15] VITALS: RESP 16; O2SAT 93
[2017-01-24 11:18] VITALS: BP 117/71; PULSE 74
== END 2017-01-24 11:17 | disposition home or self-care (01) ==
LOC: CED 06:59
DX: R11.0 Nausea (principal); R53.1 Weakness
CPT/HCPCS: 93005; 96361; 96374; 99284; J2405; 80048-PO; 80076-PO; 84484-PO; 85025-PO

== ENCOUNTER 2017-08-21 07:26 | Emergency (ER) | payer OTHER ==
[2017-08-21] MEDS ORDERED: HYDROmorphONE/DILAUDID 1 MG/ML INJ IVP ONE (07:56)
[2017-08-21] MEDS ORDERED: ONDANSETRON 4 MG/2 ML VIAL IVP ONE ×2 (07:56→09:32)
[2017-08-21] MEDS ORDERED: NS 1,000 ML IV ONE (07:56)
--- NOTE | 2017-08-21 08:00 | EDPHY ---
H & P Stated Complaint: back pain since yesterday 1500 Time Seen by Provider: 08/21/17 07:40 HPI/ROS: CHIEF COMPLAINT: Back pain HISTORY OF PRESENT ILLNESS: The patient is a 77-year-old female who comes to the emergency department complaining of bilateral mid back pain that began a few days ago as well as epigastric pain and dysuria. She thought maybe she had a kidney infection. The pain is constant. She tried taking [id number] medication without improvement. She does not know the name. She has not had a fever. She vomited once this morning. She does not have any chest pain or shortness of breath. No diarrhea. She denies any trauma. No bowel or bladder abnormalities other than the dysuria. No abdominal tenderness. No history of surgeries. REVIEW OF SYSTEMS: Constitutional: denies: chills, fever, recent illness, recent injury EENTM: denies: blurred vision, double vision, nose congestion Respiratory: denies: cough, shortness of breath Cardiac: denies: chest pain, irregular heart rate, lightheadedness, palpitations Gastrointestinal/Abdominal: See HPI Genitourinary: denies: dysuria, frequency, hematuria, pain Musculoskeletal: See HPI Skin: denies: lesions, rash, jaundice, bruising Neurological: denies: headache, numbness, paresthesia, tingling, dizziness, weakness Hematologic/Lymphatic: denies: blood clots, easy bleeding, easy bruising Immunologic/allergic: denies: HIV/AIDS, transplant EXAM: GENERAL: Well-appearing, overweight and in no acute distress. HEAD: Atraumatic, normocephalic. EYES: Pupils equal round and reactive to light, extraocular movements intact, sclera anicteric, conjunctiva are normal. ENT: TMs normal, nares patent, oropharynx clear without exudates. Moist mucous membranes. NECK: Normal range of motion, supple without lymphadenopathy or JVD. LUNGS: Breath sounds clear to auscultation bilaterally and equal. No wheezes rales or rhonchi. HEART: Regular rate and rhythm without murmurs, rubs or gallops. ABDOMEN: Soft, nontender, normoactive bowel sounds. No guarding, no rebound. No masses appreciated. BACK: Points to mid thoracic region just below shoulder blades as the source of pain bilaterally. No pain with movement or palpation or deep inspiration EXTREMITIES: Normal range of motion, no pitting or edema. No clubbing or cyanosis. NEUROLOGICAL: Cranial nerves II through XII grossly intact. Normal speech, normal gait. 5/5 strength, normal movement in all extremities, normal sensation PSYCH: Normal mood, normal affect. SKIN: Warm, dry, normal turgor, no visible rashes or lesions. Source: Patient Exam Limitations: No limitations - Personal History Tetanus Vaccine Date: within 10 years - Medical/Surgical History Hx Asthma: No Hx Chronic Respiratory Disease: No Hx Diabetes: No Hx Cardiac Disease: No Hx Renal Disease: No Hx Cirrhosis: No Hx Alcoholism: No Hx HIV/AIDS: No Hx Splenectomy or Spleen Trauma: No Other PMH: hypothyroid, tubes tied, thyroid tumor, GERD - Family History Significant Family History: No pertinent family hx - Social History Smoking Status: Never smoked Alcohol Use: Sober Drug Use: None Constitutional: Initial Vital Signs Temperature (C) 36.4 C 08/21/17 07:37 Heart Rate 55 L 08/21/17 07:37 Respiratory Rate 14 08/21/17 07:37 Blood Pressure 140/88 H 08/21/17 07:37 O2 Sat (%) 96 08/21/17 07:37 O2 Delivery Mode Room Air Allergies/Adverse Reactions: No Known Allergies Allergy (Verified 08/21/17 07:39) Home Medications: Medication Instructions Recorded Calcium 11/21/16 Levothyroxine Sodium 11/21/16 Prevacid 11/21/16 Hydrocodone/APAP 5/325 [[place] 1 - 2 tab PO Q4H PRN #10 tab 01/23/17 5/325 (*)] Ondansetron Odt [Zofran Odt 4 mg 4 mg PO Q4 PRN #20 tab 08/21/17 (RX)] Medical Decision Making - Diagnostics EKG Interpretation: An EKG obtained and was read and documented in trace view. Please see trace view for full reading and report. Sinus bradycardia, similar to previous EKG Imaging Results: Imaging Impressions Abdomen/Pelvis CT 08/21/17 08:40 Impression: 1. No evidence for nephrolithiasis or hydronephrosis. 2. Large hiatal hernia. 3. Hepatic cyst right lobe of the liver. 4. Mild diverticulosis sigmoid colon without evidence for diverticulitis. Results called and discussed with Noah Bowen MD on August 21, 2017 at 0925 hours. Attention: This CT examination is specifically designed to evaluate patients who are clinically suspected of having acute obstructive uropathy. This examination does not use radiographic contrast, and as such, provides only a limited evaluation of the abdomen, pelvis, and retroperitoneum. If there is further clinical suspicion for pathological conditions other than obstructive uropathy, a complete CT evaluation of the abdomen and pelvis utilizing intravenous, oral, and rectal contrast should be considered. Imaging: Discussed imaging studies w/ scallop dredger Radiologist ED Course/Re-evaluation: 9:30 a.m. we discussed the patient's lab and imaging results. The patient states that she felt completely better. We discussed the hiatal hernia. We discussed other possible diagnoses. She denies chest pain or shortness of breath. I did offer to do further cardiac in PE tests but she and her declined. They state that they would like to go home and continue taking the Prilosec and see if her symptoms improve or worsen. As we were discussing this the patient began vomiting again. At this point they agree to stay for further testing. I will add on a D-dimer and troponin and treat with more Zofran. She is somewhat bradycardic but denies lightheadedness or palpitations. In The room her heart rate is averaging around 60. 10:15 a.m. the patient is feeling much better. She is eating. She is eager to go home. The D-dimer and troponin are negative which is reassuring considering the duration of her symptoms and consistency. She has persistent in wanting to go home. She will follow up with her primary this week. We discussed indications for returning sooner. I will prescribe her Zofran and encouraged her to keep taking her an acids. 11:30 a.m. the patient felt lightheaded and vomited when she stood up to leave. I recommended we admit her to the hospital for bradycardia. Her heart rate remains around 60 and pre syncope and vomiting. She and her both declined. Her states that he thinks she needs to eat something because she is hungry. However she has vomited after eating a roll here in the emergency department. I advised that she does not eat and that she be admitted. Both patient again refused admission and are eager to go home. We gave him strict return precautions. They understand the limitations of the testing done thus far. Differential Diagnosis: Partial list of the Differential diagnosis considered include but were not limited to; hiatal hernia, peptic ulcer disease, biliary disease, pyelonephritis, kidney stone, urinary tract infection and although unlikely based on the history and physical exam, I also considered diverticulitis, acute coronary disease, PE, dissection, aneurysm. I discussed these differential diagnoses and the plan with the patient as well as the usual and expected course. The patient understands that the diagnosis is provisional and that in medicine we are not always correct and that further workup is often warranted. Usual and customary warnings were given. All of the patient's questions were answered. The patient was instructed to return to the emergency department should the symptoms at all worsen or return, otherwise to followup with the physician as we discussed. - Data Points Laboratory Results: Laboratory Results 08/21/17 08:20 08/21/17 08:20 08/21/17 08/21/17 08/21/17 08:20 08:20 08:20 WBC RBC Hgb Hct MCV MCH MCHC RDW Plt Count MPV Neut % (Auto) Lymph % (Auto) [place] % (Auto) Eos % (Auto) Baso % (Auto) Nucleat RBC Rel Count Absolute Neuts (auto) Absolute Lymphs (auto) Absolute Monos (auto) Absolute Eos (auto) Absolute Basos (auto) Absolute Nucleated RBC Immature Gran % Immature Gran # D-Dimer < 0.27 ug/mLFEU ug/mLFEU (0.00-0.50) Sodium 143 mEq/L mEq/L (134-144) Potassium 4.3 mEq/L mEq/L (3.5-5.2) Chloride 103 mEq/L mEq/L (97-110) Carbon Dioxide 26 mEq/l mEq/l (22-31) Anion Gap 14 mEq/L mEq/L (8-16) BUN 11 mg/dL mg/dL (7-23) Creatinine 0.8 mg/dL mg/dL (0.6-1.0) Estimated GFR > 60 Glucose 85 mg/dL mg/dL (70-100) Calcium 9.2 mg/dL mg/dL (8.5-10.4) Total Bilirubin 0.6 mg/dL mg/dL (0.1-1.4) Conjugated Bilirubin 0.0 mg/dL mg/dL (0.0-0.5) Unconjugated Bilirubin 0.6 mg/dL mg/dL (0.0-1.1) AST 17 IU/L IU/L (14-46) ALT 26 IU/L IU/L (9-52) Alkaline Phosphatase 84 IU/L IU/L (38-126) Troponin I < 0.012 ng/mL ng/mL (0.000-0.034) Total Protein 6.7 g/dL g/dL (6.3-8.2) Albumin 3.8 g/dL g/dL (3.5-5.0) Lipase 96 IU/L IU/L (23-300) Urine Color Urine Appearance Urine pH Ur Specific [place] Urine Protein Urine Ketones Urine Blood Urine Nitrate Urine Bilirubin Urine Urobilinogen Ur Leukocyte Esterase Urine RBC Urine WBC Ur Epithelial Cells Amorphous Sediment Urine Bacteria Urine Yeast Urine Glucose 08/21/17 08/21/17 08:20 08:10 WBC 4.69 10^3/uL 10^3/uL (3.80-9.50) RBC 4.37 10^6/uL 10^6/uL (4.18-5.33) Hgb 13.5 g/dL g/dL (12.6-16.3) Hct 39.9 % % (38.0-47.0) MCV 91.3 fL fL (81.5-99.8) MCH 30.9 pg pg (27.9-34.1) MCHC 33.8 g/dL g/dL (32.4-36.7) RDW 12.9 % % (11.5-15.2) Plt Count 230 10^3/uL 10^3/uL (150-400) MPV 9.1 fL fL (8.7-11.7) Neut % (Auto) 43.5 % % (39.3-74.2) Lymph % (Auto) 45.8 % H % (15.0-45.0) [place] % (Auto) 7.7 % % (4.5-13.0) Eos % (Auto) 1.7 % % (0.6-7.6) Baso % (Auto) 1.1 % % (0.3-1.7) Nucleat RBC Rel Count 0.0 % % (0.0-0.2) Absolute Neuts (auto) 2.04 10^3/uL 10^3/uL (1.70-6.50) Absolute Lymphs (auto) 2.15 10^3/uL 10^3/uL (1.00-3.00) Absolute Monos (auto) 0.36 10^3/uL 10^3/uL (0.30-0.80) Absolute Eos (auto) 0.08 10^3/uL 10^3/uL (0.03-0.40) Absolute Basos (auto) 0.05 10^3/uL 10^3/uL (0.02-0.10) Absolute Nucleated RBC 0.00 10^3/uL 10^3/uL (0-0.01) Immature Gran % 0.2 % % (0.0-1.1) Immature Gran # 0.01 10^3/uL 10^3/uL (0.00-0.10) D-Dimer Sodium Potassium Chloride Carbon Dioxide Anion Gap BUN Creatinine Estimated GFR Glucose Calcium Total Bilirubin Conjugated Bilirubin Unconjugated Bilirubin AST ALT Alkaline Phosphatase Troponin I Total Protein Albumin Lipase Urine Color PALE YELLOW Urine Appearance CLEAR Urine pH 5.5 (5.0-7.5) Ur Specific [place] <= 1.005 (1.002-1.030) Urine Protein NEGATIVE (NEGATIVE) Urine Ketones NEGATIVE (NEGATIVE) Urine Blood TRACE H (NEGATIVE) Urine Nitrate NEGATIVE (NEGATIVE) Urine Bilirubin NEGATIVE (NEGATIVE) Urine Urobilinogen 0.2 EU EU (0.2-1.0) Ur Leukocyte Esterase NEGATIVE (NEGATIVE) Urine RBC 1-3 /hpf /hpf (0-3) Urine WBC 0-1 /hpf /hpf (0-3) Ur Epithelial Cells 1+ /lpf /lpf (NONE-1+) Amorphous Sediment 1+ /hpf /hpf (NONE-1+) Urine Bacteria 1+ /hpf H /hpf (NONE SEEN) Urine Yeast OCCASIONAL /hpf H /hpf (NONE SEEN) Urine Glucose NEGATIVE (NEGATIVE) Medications Given: Discontinued Medications Hydromorphone HCl (Dilaudid) 0.5 mg IVP EDNOW ONE Stop: 08/21/17 07:57 Last Admin: 08/21/17 08:25 Dose: 0.5 mg Sodium Chloride (Ns) 1,000 mls @ 0 mls/hr IV EDNOW ONE; Wide Open PRN Reason: Protocol Stop: 08/21/17 07:57 Last Admin: 08/21/17 08:15 Dose: 1,000 mls Ondansetron HCl (Zofran) 4 mg IVP EDNOW ONE Stop: 08/21/17 07:57 Last Admin: 08/21/17 08:25 Dose: 4 mg Ondansetron HCl (Zofran) 4 mg IVP EDNOW ONE Stop: 08/21/17 09:33 Last Admin: 08/21/17 09:36 Dose: 4 mg Departure - Departure Disposition: Home, Routine, Self-Care Clinical Impression: Hiatal hernia Back pain Qualifiers: Back pain location: thoracic back pain Chronicity: acute Back pain laterality: bilateral Qualified Code(s): M54.6 - Pain in thoracic spine Vomiting Qualifiers: Vomiting type: unspecified Vomiting Intractability: non-intractable Nausea presence: with nausea Qualified Code(s): R11.2 - Nausea with vomiting, unspecified Condition: Fair Instructions: Hiatal Hernia (ED), Back Pain (ED) Referrals: Forrest Chen DO [Primary Care Provider] - As per Instructions Prescriptions: Ondansetron Odt [Zofran Odt 4 mg (RX)] 4 mg PO Q4 PRN #20 tab PRN Reason: Nausea & Vomiting
[2017-08-21 08:23] LABS: COLOR PALE YELLOW; LEUKOCYTE ESTERASE,URINE NEGATIVE (NEGATIVE); NITRITE,URINE NEGATIVE (NEGATIVE); PH,URINE 5.5 (5.0-7.5)
[2017-08-21 08:43] LABS: % IMMATURE GRANULYOCYTES 0.2 % (0.0-1.1); ABSOLUTE IMMATURE GRANULOCYTES 0.01 10^3/uL (0.00-0.10); ADD DIFF? NO; ADD MORPH? NO; ADD SCAN? NO; ATYPICAL LYMPHOCYTE FLAG 20 (0-99); FRAGMENT RBC FLAG 0 (0-99); HEMATOCRIT 39.9 % (38.0-47.0); HEMOGLOBIN 13.5 g/dL (12.6-16.3); LEFT SHIFT FLG 0 (0-99); LIPEMIA HEMOLYSIS FLAG 90 (0-99); MEAN CELL HEMOGLOBIN 30.9 pg (27.9-34.1); MEAN CELL HEMOGLOBIN CONCENTR. 33.8 g/dL (32.4-36.7); MEAN CELL VOLUME 91.3 fL (81.5-99.8); MEAN PLATELET VOLUME 9.1 fL (8.7-11.7); PLATELET CLUMPS FLAG 10 (0-99); PLATELET COUNT 230 10^3/uL (150-400); RED BLOOD CELL COUNT 4.37 10^6/uL (4.18-5.33); RED CELL DISTRIBUTION WIDTH 12.9 % (11.5-15.2)
[2017-08-21 08:44] LABS: AMORPHOUS 1+ /hpf (NONE-1+); BACTERIA 1+ /hpf (NONE SEEN); WBC,URINE 0-1 /hpf (0-3); YEAST OCCASIONAL /hpf (NONE SEEN)
--- NOTE | 2017-08-21 08:56 | CPEKG ---
Heart Rate: 49 RR Interval: 1224 P-R Interval: 176 QRSD Interval: 92 QT Interval: 484 QTC Interval: 437 P [place]: 53 QRS [place]: 28 T Wave [place]: 19 EKG Severity - BORDERLINE ECG - EKG Impression: SINUS BRADYCARDIA EKG Impression: BORDERLINE INFERIOR Q WAVES EKG Impression: Similar to previous Electronically Signed By: Noah Bwoen 21-Aug-2017 08:56:55
[2017-08-21 09:01] LABS: ALANINE AMINOTRANSFERASE 26 IU/L (9-52); ALBUMIN 3.8 g/dL (3.5-5.0); ALKALINE PHOSPHATASE 84 IU/L (38-126); ANION GAP 14 mEq/L (8-16); ASPARTATE AMINOTRANSFERASE 17 IU/L (14-46); BILIRUBIN,TOTAL 0.6 mg/dL (0.1-1.4); BILIRUBIN-UNCONJUGATED 0.6 mg/dL (0.0-1.1); CALCIUM 9.2 mg/dL (8.5-10.4); CARBON DIOXIDE 26 mEq/l (22-31); CHLORIDE 103 mEq/L (97-110); CREATININE 0.8 mg/dL (0.6-1.0); GLOMERULAR FILTRATION RATE > 60; GLUCOSE 85 mg/dL (70-100); POTASSIUM 4.3 mEq/L (3.5-5.2); SODIUM 143 mEq/L (134-144); TOTAL PROTEIN 6.7 g/dL (6.3-8.2)
[2017-08-21 10:32] VITALS: BP 143/76; PULSE 56; RESP 16; TEMP 97.5; O2SAT 94
== END 2017-08-21 10:39 | disposition home or self-care (01) ==
LOC: CED 07:26
DX: K44.9 Diaphragmatic hernia without obstruction or gangrene (principal); M54.6 Pain in thoracic spine; R11.2 Nausea with vomiting, unspecified; E86.9 Volume depletion, unspecified
CPT/HCPCS: 74176; 93005; 96374; 96375; 96376; 99285; J1170; J2405; 80048-PO; 80076-PO; 81003-PO; 81015-PO; 83690-PO; 84484-PO; 85025-PO; 85378-PO

== ENCOUNTER → 2017-12-07 | Outpatient (CLI) | payer OTHER ==
[~2017-12-07] MED LIST: IOPAMIDOL (ISOVUE-300) 100 ML BTL ONE
== END ==
LOC: CIMAGING 10:02
PROVIDERS: ATTEND Physician Assistant
DX: N39.0 Urinary tract infection, site not specified (principal); R31.29 Other microscopic hematuria; K44.9 Diaphragmatic hernia without obstruction or gangrene
CPT/HCPCS: 74177; Q9967

== ENCOUNTER → 2018-01-11 | Outpatient (CLI) | payer OTHER | LOC: CIMAGING 12:00 | PROVIDERS: ATTEND Family Medicine | DX: M25.531 Pain in right wrist (principal) | CPT/HCPCS: 73110-PO ==

== ENCOUNTER → 2018-03-03 | Outpatient (CLI) | payer OTHER | LOC: CIMAGING 08:04 | PROVIDERS: ATTEND Family Medicine | DX: Z12.31 Encounter for screening mammogram for malignant neoplasm of breast (principal) ==